=== PATIENT | male | born 1960 | race Caucasian/White ===

== ENCOUNTER 2021-11-20 14:49 | Emergency (ER) | payer BC ==
[2021-11-20 15:46] VITALS: BP 121/96; PULSE 70; TEMP 99.5
[2021-11-20] MEDS ORDERED: RABIES IMMUNE GLOBULIN 300 UNITS/1 ML VIAL IM ONE ×2 (16:34→17:19)
[2021-11-20] MEDS ORDERED: RABIES VACCINE (PCEC)/PF 2.5 UNIT/VIAL IM ONE ×2 (16:34→16:40)
[2021-11-20] MEDS ORDERED: RABIES IMMUNE GLOBULIN 300 UNITS/1 ML VIAL ONE (16:40)
[2021-11-20 16:46] VITALS: BMI 26.6
== END 2021-11-20 18:15 | disposition home or self-care (01) ==
LOC: FER 14:49
PROC: 3E0234Z Introduction of Serum, Toxoid and Vaccine into Muscle, Percutaneous Approach (ICD-10-PCS; principal; 2021-11-20)
PROC: 3E0234Z Introduction of Serum, Toxoid and Vaccine into Muscle, Percutaneous Approach (ICD-10-PCS; 2021-11-20)
DX: Z29.14 Encounter for prophylactic rabies immune globulin (principal)
CPT/HCPCS: 90375; 90675; 99284-25

== ENCOUNTER 2021-11-23 11:00 | Emergency (ER) | payer BC ==
[2021-11-23] MEDS ORDERED: RABIES VACCINE (PCEC)/PF 2.5 UNIT/VIAL IM ONE ×2 (11:10→11:15)
[2021-11-23 11:16] VITALS: BP 121/89; PULSE 71; TEMP 97.9; BMI 26.6
== END 2021-11-23 11:40 | disposition home or self-care (01) ==
LOC: FER 11:00
PROC: 3E023GC Introduction of Other Therapeutic Substance into Muscle, Percutaneous Approach (ICD-10-PCS; principal; 2021-11-23)
DX: Z20.3 Contact with and (suspected) exposure to rabies (principal)
CPT/HCPCS: 90675; 96372; 99283-25

== ENCOUNTER 2021-11-27 09:14 | Emergency (ER) | payer BC ==
[2021-11-27] MEDS ORDERED: RABIES VACCINE (PCEC)/PF 2.5 UNIT/VIAL IM ONE ×2 (09:15→09:23)
[2021-11-27 09:21] VITALS: BP 124/86; PULSE 63; TEMP 98.8; BMI 26.4
== END 2021-11-27 09:44 | disposition home or self-care (01) ==
LOC: FER 09:14
PROC: 3E023GC Introduction of Other Therapeutic Substance into Muscle, Percutaneous Approach (ICD-10-PCS; principal; 2021-11-27)
DX: Z20.3 Contact with and (suspected) exposure to rabies (principal)
CPT/HCPCS: 90675; 99283-25

== ENCOUNTER 2021-12-04 08:50 | Emergency (ER) | payer BC ==
[2021-12-04] MEDS ORDERED: RABIES VACCINE (PCEC)/PF 2.5 UNIT/VIAL IM ONE ×2 (08:57→09:02)
[2021-12-04 09:05] VITALS: BP 111/77; PULSE 84; TEMP 98.4; BMI 27.0
== END 2021-12-04 09:14 | disposition home or self-care (01) ==
LOC: FER 08:50
PROC: 3E0234Z Introduction of Serum, Toxoid and Vaccine into Muscle, Percutaneous Approach (ICD-10-PCS; principal; 2021-12-04)
DX: Z29.14 Encounter for prophylactic rabies immune globulin (principal)
CPT/HCPCS: 90471; 90675; 99283-25